=== PATIENT | female | born 1985 | race Caucasian/White ===

== ENCOUNTER 2017-06-03 10:54 | Emergency (ER) | payer OTHER ==
--- NOTE | 2017-06-03 11:57 | XRAY Preliminary Report ---
Exam: XR Toe(s) RT Impression: Cortical irregularity involving the distal phalanx of the fifth toe that may represent a normal anatomic or minimally displaced fracture. [facility] SITE ID: [id number]
--- NOTE | 2017-06-03 12:00 | XRAY Report ---
EXAM: RIGHT TOE RADIOGRAPHY EXAM DATE: 06/03/2017 11:13 AM. CLINICAL HISTORY: Pain after stubbing toe. COMPARISON: None. TECHNIQUE: 3 views. FINDINGS: There is minimal cortical irregularity involving the distal phalanx of the fifth toe. This may repres ent a normal anatomic variant or a minimally displaced fracture. No radiopaque foreign body is seen. The joint spaces are well-preserved. Impression: Cortical irregularity involving the distal phalanx of the fifth toe that may represent a normal anatomic or minimally displaced fracture. [facility] Referring Provider Line: [phone] SITE ID: [id number]
--- NOTE | 2017-06-03 12:32 | ED Physician Documentation ---
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 - Present Medications Home Medications: Ambulatory Orders Medication Instructions Recorded Confirmed Ethinyl Estradiol/Drospirenone 1 tab PO DAILY 06/03/17 06/03/17 [Terri 28 Tablet] - Allergies Allergies/Adverse Reactions: Allergies Allergy/AdvReac Type Severity Reaction Status Date / Time No Known Drug Allergies Allergy Verified 06/03/17 11:03 - Social History Does the pt smoke?: No Smoking Status: Never smoker Does the pt drink ETOH?: Yes ETOH Use: Wine, Beer, Liquor Does the pt have substance abuse?: No - Immunizations Immunizations are current?: Yes - POLST Patient has POLST: No PD ED PE NORMAL - Vitals Vital signs reviewed: Yes - Extremities Extremities: Other (R foot 5th toe - no def, TTP IP jt, no open wound, MSV intact) Results - Rads (name of study) toes Radiology: See rad report (corticla irreg distal phalange 5th toe may be a min displaced fx) Departure - Departure Disposition: 01 Home, Self Care Clinical Impression: Toe fracture, right Qualifiers: Encounter type: initial encounter Toe: lesser toe Fracture type: closed Phalanx : distal Fracture alignment: nondisplaced Qualified Code(s): S92.534A - Nondisplaced fracture of distal phalanx of right lesser toe(s), initial encounter for closed fracture Condition: Good Instructions: ED Fx Toe Closed Comments: The xray does show a non displaced fracture of the 5th toe Recommend you continue to yenni tape the toes, wear a stiff soled show to prevent the toe from bending, ice and elevate to decrease any swelling and take motrin and/or tylenol for the pain
[2017-06-03 13:00] VITALS: BP 115/75
== END 2017-06-03 12:59 | disposition home or self-care (01) ==
LOC: ED 10:54
DX: S92.534A Nondisplaced fracture of distal phalanx of right lesser toe(s), initial encounter for closed fracture (principal); W22.03XA Walked into furniture, initial encounter
CPT/HCPCS: 73660; 99283

== ENCOUNTER 2019-06-15 14:39 | Outpatient (CLI) | payer OTHER ==
[2019-06-15 19:36] LABS: ALBUMIN 4.4 g/dL (3.2-5.5); BILIRUBIN,TOTAL 0.8 mg/dL (0.2-1.0); CALCIUM 9.4 mg/dL (8.5-10.3); CREATININE 0.9 mg/dL (0.4-1.0); TOTAL PROTEIN 8.8 g/dL (6.7-8.2)
== END 2019-06-15 23:59 | disposition home or self-care (01) ==
LOC: LAB.WCP 14:39
PROVIDERS: ATTEND Nurse Practitioner Gerontology
DX: E03.9 Hypothyroidism, unspecified (principal); R63.5 Abnormal weight gain
CPT/HCPCS: 36415; 80053; 84443

== ENCOUNTER 2019-06-21 07:05 | Outpatient (CLI) | payer OTHER ==
--- NOTE | 2019-06-21 16:31 | Ultrasound Report ---
Reason: ELEVATED LIVER ENZYME Procedure Date: 06/21/2019 Accession Number: [id number] / [id number] Procedure: US - Abdomen Limited CPT Code: FULL RESULT: EXAM: ABDOMEN ULTRASOUND LIMITED, RUQ EXAM DATE: 06/21/2019 07:52 AM. CLINICAL HISTORY: ELEVATED LIVER ENZYME. COMPARISON: None. TECHNIQUE: Real-time scanning was performed with static images obtained. FINDINGS: Liver: Normal in size and echotexture. 15.7 cm. Main portal vein flow: Hepatopetal. Gallbladder: Normal. No stones, wall thickening, or sonographic Lacey's sign. Biliary System: CBD measures 4.2 mm. No intrahepatic or extrahepatic ductal dilatation. Free fluid: None. Mild prominence of the proximal right ureter IMPRESSION: No cholelithiasis or cholecystitis. No focal hepatic pathology. [facility]
--- NOTE | 2019-06-21 16:36 | Ultrasound Report ---
Reason: POLYCYSTIC OVARIAN SYNDROME Procedure Date: 06/21/2019 Accession Number: [id number] / [id number] Procedure: US - Pelvic w/Transvaginal CPT Code: FULL RESULT: EXAM: PELVIC ULTRASOUND EXAM DATE: 06/21/2019 08:40 AM. CLINICAL HISTORY: POLYCYSTIC OVARIAN SYNDROME. Irregular menses COMPARISON: None. TECHNIQUE: Realtime transabdominal pelvic scan performed to identify the uterus and adnexa and as an overview of other pelvic structures, followed by transvaginal scan to provide greater detail of the uterus and adnexa, with static image documentation. FINDINGS: Uterus: 7.3 x 2.6 x 4.4 cm, volume 43 cc. Anteverted position. Normal overall size and echotexture. Masses: None. Endometrium: 2.2 mm. Normal. Cervix: Unremarkable. Right Ovary: 2.7 x 1.3 x 1.7 cm, volume 3.1 cc. Normal echotexture and blood flow. A few small follicles present. Left Ovary: 2.8 x 1.4 x 1.6 cm, volume 3.2 cc. Normal echotexture and blood flow. A few small follicles present. Free Fluid: None. Other: IMPRESSION: No significant abnormality pelvic ultrasound. [facility]
== END 2019-06-21 07:06 | disposition home or self-care (01) ==
LOC: DI 07:05
PROVIDERS: ATTEND Nurse Practitioner Gerontology
DX: E28.2 Polycystic ovarian syndrome (principal); R74.8 Abnormal levels of other serum enzymes
CPT/HCPCS: 76705; 76830; 76856